=== PATIENT | male | born 1970 | race Caucasian/White ===

== ENCOUNTER → 2017-11-24 | Outpatient (CLI) | payer OTHER, BC ==
[2017-11-24 13:33] LABS: BASO # 0.1 10^3/uL (0.0-0.2); BASO % 0.8 % (0.0-1.0); EOS # 0.1 10^3/uL (0.0-0.50); EOS % 1.3 % (0.0-3.0); HEMATOCRIT 43.8 % (42.0-52.0); HEMOGLOBIN 14.8 g/dl (14.0-18.0); IMMATURE GRANULOCYTE % 0.3 % (0-3.0); MEAN CORPUSCULAR HEMOGLOBIN 32.4 pg (27.0-33.0); MEAN CORPUSCULAR HGB CONC 33.8 g/dl (32.0-36.5); MEAN CORPUSCULAR VOLUME 95.8 fl (80.0-96.0); MONO # 0.6 10^3/uL (0.0-0.8); MONO % 9.6 % (0.0-5.0); NEUTROPHILS # 2.4 10^3/uL (1.8-7.7); PLATELET COUNT, AUTOMATED 312 10^3/uL (150-450); RED BLOOD COUNT 4.57 10^6/uL (4.30-6.10)
[2017-11-24 14:00] LABS: ALBUMIN 3.6 GM/DL (3.2-5.2); ALBUMIN/GLOBULIN RATIO 1.09 (1.00-1.93); ALKALINE PHOSPHATASE 72 U/L (45-117); ALT/SGPT 30 U/L (12-78); ANION GAP 6 MEQ/L (8-16); AST/SGOT 15 U/L (7-37); BILIRUBIN,TOTAL 0.3 MG/DL (0.2-1.0); BLOOD UREA NITROGEN 18 MG/DL (7-18); CALCIUM LEVEL 8.9 MG/DL (8.5-10.1); CARBON DIOXIDE LEVEL 28 MEQ/L (21-32); CHLORIDE LEVEL 107 MEQ/L (98-107); CHOLESTEROL LEVEL 229 MG/DL (<200); CHOLESTEROL RISK RATIO 5.585 (<5); CREATININE FOR GFR 1.05 MG/DL (0.70-1.30); FREE T4 0.82 NG/DL (0.76-1.46); GLOMERULAR FILTRATION RATE > 60.0 (>60); GLUCOSE, FASTING 85 MG/DL (70-100); HDL CHOLESTEROL 41 MG/DL (>40); LDL CHOLESTEROL 150.6 MG/DL (<100); NON-HDL-C 188 MG/DL; POTASSIUM SERUM 4.7 MEQ/L (3.5-5.1); SODIUM LEVEL 141 MEQ/L (136-145); TOTAL PROTEIN 6.9 GM/DL (6.4-8.2); TRIGLYCERIDES LEVEL 187 MG/DL (<150)
== END ==
LOC: M ADAMS 08:06
DX: Z00.00 Encounter for general adult medical examination without abnormal findings (principal); F32.9 Major depressive disorder, single episode, unspecified; M79.601 Pain in right arm
CPT/HCPCS: 84443

== ENCOUNTER 2017-12-08 12:45 | Outpatient (RCR) | payer OTHER, BC | END 2017-12-26 | LOC: M PT 12:45 | DX: Z51.89 Encounter for other specified aftercare (principal); M79.602 Pain in left arm ==

== ENCOUNTER 2017-12-31 12:40 | Outpatient (RCR) | payer OTHER | END 2018-01-25 | LOC: M PT 01-06 10:10 | DX: Z51.89 Encounter for other specified aftercare (principal); M79.602 Pain in left arm | CPT/HCPCS: 97010 ==

== ENCOUNTER → 2018-02-26 | Outpatient (CLI) | payer OTHER | LOC: M RAD 18:00 | DX: M75.41 Impingement syndrome of right shoulder (principal) | CPT/HCPCS: 73221 ==

== ENCOUNTER 2018-07-30 11:18 | Emergency (ER) | payer OTHER, MEDICAID ==
[2018-07-30 12:06] LABS: BASO % 0.6 % (0.0-1.0); EOS # 0.1 10^3/uL (0.0-0.50); EOS % 1.1 % (0.0-3.0); HEMATOCRIT 44.8 % (42.0-52.0); HEMOGLOBIN 15.6 g/dl (13.5-17.5); IMMATURE GRANULOCYTE % 0.3 % (0-3.0); LYMPH # 2.8 10^3/uL (1.5-4.5); LYMPH % 41.9 % (24.0-44.0); MEAN CORPUSCULAR HEMOGLOBIN 32.4 pg (27.0-33.0); MEAN CORPUSCULAR HGB CONC 34.8 g/dl (32.0-36.5); MEAN CORPUSCULAR VOLUME 92.9 fl (80.0-96.0); MONO # 0.5 10^3/uL (0.0-0.8); MONO % 8.1 % (0.0-5.0); NEUTROPHILS # 3.2 10^3/uL (1.8-7.7); PLATELET COUNT, AUTOMATED 313 10^3/uL (150-450); RED BLOOD COUNT 4.82 10^6/uL (4.30-6.10); RED CELL DISTRIBUTION WIDTH 13.5 % (11.5-14.5); WHITE BLOOD COUNT 6.6 10^3/uL (4.0-10.0)
[2018-07-30 12:18] LABS: INR 0.91; PARTIAL THROMBOPLASTIN TIME 26.6 SECONDS (25.4-37.6); PROTHROMBIN TIME 12.3 SECONDS (12.1-14.4)
[2018-07-30 12:53] LABS: ANION GAP 6 MEQ/L (8-16); BLOOD UREA NITROGEN 13 MG/DL (7-18); CALCIUM LEVEL 9.6 MG/DL (8.5-10.1); CARBON DIOXIDE LEVEL 27 MEQ/L (21-32); CHLORIDE LEVEL 107 MEQ/L (98-107); CK-MB VALUE MASS < 1.0 NG/ML (<3.6); CPK CREATINE PHOSPHOKINASE 104 U/L (39-308); CREATININE FOR GFR 0.97 MG/DL (0.70-1.30); GLOMERULAR FILTRATION RATE > 60.0 (>60); GLUCOSE, FASTING 92 MG/DL (70-100); MB/CK RELATIVE INDEX 0.96 (< OR =4); SODIUM LEVEL 140 MEQ/L (136-145); TROPONIN I < 0.02 NG/ML (< 0.10)
[2018-07-30] MEDS: NS 1,000 ML IV (14:09)
[2018-07-30] MEDS: METOCLOPRAMIDE INJ 10MG/2ML VIAL (J2765) IV (14:09)
[2018-07-30] MEDS: KETOROLAC 30 MG/ML VIAL (J1885) IV (14:10)
[2018-08-03 14:07] LABS: BEDSIDE GLUCOSE 86 MG/DL (70-105)
== END 2018-07-30 15:58 | disposition home or self-care (01) ==
LOC: M ED 11:18
DX: R51 Headache (principal); R00.1 Bradycardia, unspecified; K57.90 Diverticulosis of intestine, part unspecified, without perforation or abscess without bleeding; F32.9 Major depressive disorder, single episode, unspecified; F41.9 Anxiety disorder, unspecified; F31.9 Bipolar disorder, unspecified; M54.5 Low back pain
CPT/HCPCS: J1885

== ENCOUNTER 2018-09-01 10:15 | Day surgery (SDC) | payer OTHER ==
[2018-09-01] MEDS ORDERED: LR 1,000 ML IV ×3 (10:45→15:30)
[2018-09-01] MEDS ORDERED: METOCLOPRAMIDE INJ 10MG/2ML VIAL (J2765) As Ordered (12:38)
[2018-09-01] MEDS ORDERED: PROPOFOL 200 MG/20 ML VIAL As Ordered (12:38)
[2018-09-01] MEDS ORDERED: MIDAZOLAM INJ 2 MG/2 ML VIAL (J2250) As Ordered (12:38)
[2018-09-01] MEDS ORDERED: LIDOCAINE 2% INJ 100 MG/5 ML SDV (FOR ANES.) As Ordered (12:38)
[2018-09-01] MEDS ORDERED: ONDANSETRON 4MG/2ML VIAL (J2405) As Ordered (12:38)
[2018-09-01] MEDS ORDERED: dexameTHASONE 4 MG/ML 1ML VIAL (J1100) As Ordered (12:38)
[2018-09-01] MEDS ORDERED: fentaNYL 100 MCG/2 ML INJECTION (J3010) As Ordered ×4 (12:57→15:24)
[2018-09-01] MEDS ORDERED: KETOROLAC 60 MG/2 ML VIAL (J1885) As Ordered (13:00)
[2018-09-01] MEDS ORDERED: SEVOFLURANE INHAL SOLN 250 ML BTL As Ordered (13:14)
[2018-09-01] MEDS ORDERED: DESFLURANE 240 ML INHALANT As Ordered (14:34)
[2018-09-01] MEDS: BUPIVACAINE HCL 0.5% 30 ML VIAL As Ordered (14:57)
[2018-09-01] MEDS ORDERED: PERCOCET 5MG/325MG TAB As Ordered ×2 (15:24→16:37)
[2018-09-01] MEDS: fentaNYL 100 MCG/2 ML INJECTION (J3010) IV ×4 (15:29→15:43)
[2018-09-01] MEDS ORDERED: MEPERIDINE INJ 25 MG/ML VIAL (J2175) IV (15:30)
[2018-09-01] MEDS: ONDANSETRON 4MG/2ML VIAL (J2405) IV (15:33)
[2018-09-01] MEDS ORDERED: LABETALOL HCL 100 MG/20 ML VIAL As Ordered (15:34)
[2018-09-01] MEDS: LABETALOL HCL 100 MG/20 ML VIAL IV ×2 (15:38→15:43)
[2018-09-01] MEDS: METOCLOPRAMIDE INJ 10MG/2ML VIAL (J2765) IV (15:45)
[2018-09-01] MEDS: PERCOCET 5MG/325MG TAB PO (16:39)
[2018-09-01] MEDS: NALBUPHINE HCL 10 MG/ML AMP (J2300) IV ×2 (16:40→17:15)
[2018-09-01] MEDS ORDERED: MORPHINE 10 MG/ML 1ML VIAL (J2270) As Ordered (16:59)
[2018-09-01] MEDS: MORPHINE 10 MG/ML 1ML VIAL (J2270) IV (17:00)
== END 2018-09-01 19:25 | disposition home or self-care (01) ==
LOC: M SDC 10:15
DX: S46.212A Strain of muscle, fascia and tendon of other parts of biceps, left arm, initial encounter (principal); K57.32 Diverticulitis of large intestine without perforation or abscess without bleeding; F41.9 Anxiety disorder, unspecified; K04.7 Periapical abscess without sinus; Z87.891 Personal history of nicotine dependence; X58.XXXA Exposure to other specified factors, initial encounter; Y93.89 Activity, other specified; Y92.89 Other specified places as the place of occurrence of the external cause; Y99.8 Other external cause status
CPT/HCPCS: 24341

== ENCOUNTER 2018-09-24 08:45 | Outpatient (RCR) | payer OTHER ==
[~2018-09-24 08:45] MED LIST: AMOX875T PO; IBUP80TA PO
== END 2018-09-27 ==
LOC: M PT 08:45
PROVIDERS: ATTEND Physician Assistant Medical
DX: Z47.89 Encounter for other orthopedic aftercare (principal); S46.212D Strain of muscle, fascia and tendon of other parts of biceps, left arm, subsequent encounter

== ENCOUNTER → 2018-10-06 | Outpatient (CLI) | payer OTHER ==
[~2018-10-06] MED LIST changes: +PROHANCE 279.3MG/ML 15ML VIAL (A9576) As Ordered ONE; +PROHANCE 279.3MG/ML 5ML VIAL (A9576) As Ordered ONE
--- NOTE | 2018-10-06 16:40 | REP ---
MR IACS WITHOUT AND WITH CONTRAST: HISTORY: Left hearing loss. CONTRAST: ProHance 18 mL Areas of increased signal intensity on T2-weighted images are present in the periventricular and subcortical white matter. These are largely subcortical in location. This represents small-vessel ischemic disease. There is no intraparenchymal hemorrhage, infarct, mass or midline shift. There is no abnormal enhancement. The ventricular system is normal in appearance. There is no extracerebral collection. There is no cerebellopontine angle mass. The inner ear structures are normal in appearance. The mastoid air cells are clear. A retention cyst is present in the right maxillary sinus. IMPRESSION: Small vessel ischemic disease. Electronically Signed by Martin Sandoval MD 10/06/2018 04:48 P
== END ==
LOC: M RAD 13:31
PROVIDERS: ATTEND Otolaryngology
DX: H90.42 Sensorineural hearing loss, unilateral, left ear, with unrestricted hearing on the contralateral side (principal)
CPT/HCPCS: 70553; A9576

== ENCOUNTER 2018-10-25 15:15 | Outpatient (RCR) | payer OTHER ==
[~2018-10-25 15:15] MED LIST changes: -PROHANCE 279.3MG/ML 15ML VIAL (A9576) As Ordered ONE; -PROHANCE 279.3MG/ML 5ML VIAL (A9576) As Ordered ONE
== END 2018-10-28 ==
LOC: M PT 15:15
PROVIDERS: ATTEND Physician Assistant Medical
DX: Z47.89 Encounter for other orthopedic aftercare (principal); S46.212D Strain of muscle, fascia and tendon of other parts of biceps, left arm, subsequent encounter; W18.30XD Fall on same level, unspecified, subsequent encounter; Y92.009 Unspecified place in unspecified non-institutional (private) residence as the place of occurrence of the external cause

== ENCOUNTER 2018-11-04 15:00 | Outpatient (RCR) | payer OTHER | END 2018-11-25 | LOC: M PT 15:00 | PROVIDERS: ATTEND Physician Assistant Medical | DX: Z47.89 Encounter for other orthopedic aftercare (principal); S46.212D Strain of muscle, fascia and tendon of other parts of biceps, left arm, subsequent encounter; W18.30XD Fall on same level, unspecified, subsequent encounter; Y92.009 Unspecified place in unspecified non-institutional (private) residence as the place of occurrence of the external cause ==

== ENCOUNTER 2018-12-22 14:32 | Outpatient (RCR) | payer OTHER | END 2018-12-26 | LOC: M PT 14:32 | PROVIDERS: ATTEND Physician Assistant Medical | DX: Z47.89 Encounter for other orthopedic aftercare (principal); S46.212D Strain of muscle, fascia and tendon of other parts of biceps, left arm, subsequent encounter; W18.30XD Fall on same level, unspecified, subsequent encounter; Y92.009 Unspecified place in unspecified non-institutional (private) residence as the place of occurrence of the external cause ==

== ENCOUNTER 2019-01-03 15:46 | Outpatient (RCR) | payer OTHER | END 2019-01-25 | LOC: M PT 15:46 | PROVIDERS: ATTEND Physician Assistant Medical | DX: Z47.89 Encounter for other orthopedic aftercare (principal); S46.212D Strain of muscle, fascia and tendon of other parts of biceps, left arm, subsequent encounter; W18.30XD Fall on same level, unspecified, subsequent encounter; Y92.009 Unspecified place in unspecified non-institutional (private) residence as the place of occurrence of the external cause ==

== ENCOUNTER → 2021-06-25 | Outpatient (REF) | payer OTHER ==
[2021-06-25 12:48] LABS: BASO # 0.1 10^3/uL (0.0-0.2); EOS % 0.8 % (0.0-3.0); HEMATOCRIT 47.3 % (42.0-52.0); HEMOGLOBIN 15.6 g/dl (13.5-17.5); LYMPH # 1.8 10^3/uL (1.5-5.0); LYMPH % 35.7 % (24.0-44.0); MEAN CORPUSCULAR HEMOGLOBIN 31.9 pg (27.0-33.0); MEAN CORPUSCULAR VOLUME 96.7 fl (80.0-96.0); MONO # 0.5 10^3/uL (0.0-0.8); MONO % 10.3 % (2.0-8.0); NEUTROPHILS # 2.6 10^3/uL (1.5-8.5); NEUTROPHILS % 51.8 % (36.0-66.0); PLATELET COUNT, AUTOMATED 318 10^3/uL (150-450); RED BLOOD COUNT 4.89 10^6/uL (4.30-6.10)
[2021-06-25 13:15] LABS: ALBUMIN 3.6 GM/DL (3.2-5.2); ALT/SGPT 36 U/L (12-78); BILIRUBIN,TOTAL 0.4 MG/DL (0.2-1.0); BLOOD UREA NITROGEN 12 MG/DL (7-18); CALCIUM LEVEL 9.6 MG/DL (8.5-10.1); CARBON DIOXIDE LEVEL 29 MEQ/L (21-32); CHLORIDE LEVEL 110 MEQ/L (98-107); CHOLESTEROL LEVEL 228 MG/DL (<200); GLOMERULAR FILTRATION RATE > 60.0 (>60); GLUCOSE, FASTING 87 MG/DL (70-100); HDL CHOLESTEROL 40 MG/DL (>40); LDL CHOLESTEROL 160 MG/DL (<100); NON-HDL-C 188 MG/DL; POTASSIUM SERUM 5.3 MEQ/L (3.5-5.1); SODIUM LEVEL 142 MEQ/L (136-145); TOTAL PROTEIN 6.8 GM/DL (6.4-8.2); TRIGLYCERIDES LEVEL 142 MG/DL (<150)
== END ==
LOC: M SFHCADAM 08:15
PROVIDERS: ATTEND Family Medicine
DX: Z00.00 Encounter for general adult medical examination without abnormal findings (principal)

== ENCOUNTER → 2021-08-20 | Outpatient (CLI) | payer OTHER ==
--- NOTE | 2021-08-20 10:07 | REP ---
INDICATION: RT SHOULDER PAIN COMPARISON: 11/24/2017 TECHNIQUE: Internal rotation, external rotation, and Y view. FINDINGS: There is no evidence for acute fracture or dislocation. Acromioclavicular and glenohumeral joints are essentially age-appropriate. No significant osteophytosis, periarticular calcifications or loose bodies are identified. Surrounding soft tissues are unremarkable. IMPRESSION: Age-appropriate right shoulder radiographs. <Electronically signed by Jhon Calderon > 08/20/21 1005
--- NOTE | 2021-08-20 10:09 | REP ---
INDICATION: RT SHOULDER PAIN COMPARISON: 04/26/2010 TECHNIQUE: AP, lateral, bilateral oblique, and open-mouth views. FINDINGS: Alignment and lordosis is relatively maintained. Very minimal chronic retrolisthesis at the C3-4 level is again suggested with subtle posterior osteophytes suspected. There is no evidence for acute fracture / compression injury or subluxation. No further significant degenerative changes are appreciated. Oblique views demonstrate patent neural foramen. Open mouth view demonstrates normal C1-C2 articulation and odontoid process. IMPRESSION: Essentially stable age-appropriate examination. <Electronically signed by Jhon Calderon > 08/20/21 1947
== END ==
LOC: M SOG 09:28
PROVIDERS: ATTEND Orthopaedic Surgery Sports Medicine
DX: M25.511 Pain in right shoulder (principal)

== ENCOUNTER → 2021-08-26 | Outpatient (CLI) | payer OTHER | LOC: M LABSMTC 10:57 | PROVIDERS: ATTEND Anesthesiology | DX: Z01.812 Encounter for preprocedural laboratory examination (principal); Z20.822 Contact with and (suspected) exposure to COVID-19 ==

== ENCOUNTER 2021-08-28 07:53 | Day surgery (SDC) | payer OTHER ==
[~2021-08-28] VITALS: Ht 180.3 cm; Wt 86.6 kg
[~2021-08-28 07:53] MED LIST changes: +LIDOCAINE 2% 100MG/5ML SDV (FOR ANES.) As Ordered ONE; +NS 1,000 ML IV ONE; +propofoL 200 MG/20 ML VIAL As Ordered ONE
--- OUTSIDE RECORDS SUMMARY | 2021-08-28 07:58 | CCD ---
Author Author [facility] Syst ems Organization [facility] [employer] [facility] Syst ems Address Unknown Phone Unavailable Care Team Providers Care Hydrostatic Tubing Tester Name Role Phone Armida Escoto Unavailable PROBLEMS Type Condition ICD9-CM Code [id number] Code Onset Dates Condition S tatus W/U Status Risk SNOMED Code Notes Problem Depression, unspecified depression type F32.9 Active confirmed 93575765 Problem Anxiety with depression F41.8 Active confirmed 543950351 Problem Mixed hyperlipidemia E78.2 Active confirmed 334277209 Problem Tinnitus, unspecified laterality H93.19 Active conf irmed 47870051 Problem Other chronic pain G89.29 Active confirmed 8 6600342 Problem Anxiety disorder, unspecified F41.9 Active confirm ed 327594648 Problem Generalized anxiety disorder F41.1 Active confirme d 98512540 Problem Bipolar II disorder F31.81 Active confirmed 20375111 Problem Bipolar 2 disorder, major depressive episode F31.8 1 Active confirmed 69991335 ALLERGIES No Known Allergies ENCOUNTERS from 1972 to 2021-07-04 Encounter Location Date Provider Diagnosis [address] [place] [address] 29 May, 2021 Armida Escoto Annual physical exam Z00.00 ; Colon canc er screening Z12.11 and Diarrhea, unspecified type R19.7 IMMUNIZATIONS Vaccine Route Administration Date Status COVID-19 dose #2 given elsewhere Unspecified Unknown Feb Administered COVID-19 dose #1 given elsewhere Unspecified Unknown February 10, 2021 Administered Influenza 6mo & up Fluzone Unknown Aug 16, 2018 Other s SOCIAL HISTORY Tobacco Use: Social History Observation Description Date Details (start date - stop date) Former Smoker Sex Assigned At : Social History Observation Description Sex Assigned At Unknown Education: Question Answer Notes Level of Education: High School Audit Question Answer Notes Total Score: 0 Interpretation: Alcohol Education Language: Question Answer Notes Languages spoken: Chinese Orthodox: Question Answer Notes Orthodox 08 Faith Sexual Hx: Question Answer Notes Had sex in the last 12 months (vaginal, oral, or anal)? Yes Have you ever had an STD? Yes with Women only Use protection? Yes Other? Yes How often? All of the time Drug and Alcohol Question Answer Notes Total Score: 0 Interpretation: No problems reported Alcohol Screening: Question Answer Notes Did you have a drink containing alcohol in the past year? No Points 0 Interpretation Negative Tobacco Use: Question Answer Notes Are you a: former smoker How long has it been since you last smoked? > 10 years REASON FOR REFERRAL from 1972 to 2021-07-04 Reason Patient is due for screening colonoscopy; also has a history of diverticulitis, and has had loose stool for weeks. Please eval and treat. Diagnosis 1 Colon cancer screening (Z12. 11) Referral Organization [facility] Luis Referring Provider First Name Armida Referring Provider Last Name Jevon Referring Provider Specialty Family Medicine Referred Provider General Irma FARRAR (RAYO latif) Referred Provider Specialty General Surgery Referral Priority Routine General Notes Jewel Danielle 06/26/2021 4:55 :59 PM > faxedJewel Danielle 06/27/2021 10:30:47 AM > ref # [id number] VITAL SIGNS Weight 190.8 lbs May, Weight-kg 86.55 kg May, Height 5'11" in May, BMI 26.61 kg/m2 May, Heart Rate 80 /min May, Respiratory Rate 18 /min May, Temperature 97.8 degrees Fahrenheit May, Oximetry 98 May, Blood pressure systolic 120 mm Hg May, Blood pressure diastolic 78 mm Hg May, MEDICATIONS Medication SIG (Take, Route, Frequency, Duration) Notes Start Da te End Date Status May Have - CBD orally twice daily No t-Taking IBU-200 200 MG 1 tablet with food or milk as needed Orally Thre e times a day Active PROCEDURES No Information RESULTS No Results REASON FOR VISIT annual MEDICAL (GENERAL) HISTORY Type Description Date Medical History alcohol abuse, in remission Medical History diverticulitis Medical History sensorineural hearing loss, more prominent L ear, appropriate MRI Medical History 10 year ASCVD risk 7.11% (12/2017) Surgical History distal bicep L arm 09/01/18 Goals Section No Information Health Concerns No Information MEDICAL EQUIPMENT No Information MENTAL STATUS No Information FUNCTIONAL STATUS No Information ASSESSMENTS Encounter Date Diagnosis Assessment Notes Treatment Notes Treatm ent Clinical Notes May, Annual physical exam (ICD-10 - Z00.00) Patient seen and examined. Past medical, surgical, family, social history reviewed. Discussed preventive medicine, including immunizations. Appropriate labwork was ordered. May, Colon cancer screening (ICD-10 - Z12.11) Referral made. May, Diarrhea, unspecified type (ICD-10 - R19.7) GI panel ordered to further evaluate. PLAN OF TREATMENT Treatment Notes Assessment Notes Clinical Notes Annual physical exam Patient seen and ex amined. Past medical, surgical, family, social history reviewed. Discussed preventive medicine, including immunizations. Appropriate labwork was ordered. Colon cancer screening Referral made. Diarrhea, unspecified type GI panel orde red to further evaluate. Future Test Test Name Order Date GASTROINTESTINAL GI PANEL (GIPANEL) [id number] Referrals Referral Date Details Patient is due for screening colonoscopy; also has a history of diverticulitis, and has had loose stool for weeks. Please eval and treat., General Surge[facility] ([facility] [place]) [facility] Next Appt Details 4 Weeks Reason:f/u Follow Up:4 Weeksf/u Insurance Providers Payer Name Payer Address Payer Phone Insured Name Patient Relati onship to Insured Coverage Start Date Coverage End Date [facility] [address] [facility] [phone] FRANK CADET self
--- OUTSIDE RECORDS SUMMARY | 2021-08-28 07:58 | CCD ---
Author Author [facility] [employer] [facility] Syst ems Organization [facility] [employer] Syst ems Address Unknown Phone Unavailable Care Team Providers Care Weighter Name Role Phone Armida Escoto Unavailable PROBLEMS Type Condition ICD9-CM Code [id number] Code Onset Dates Condition S tatus W/U Status Risk SNOMED Code Notes Problem Depression, unspecified depression type F32.9 Active confirmed 61958265 Problem Anxiety with depression F41.8 Active confirmed 068191741 Problem Mixed hyperlipidemia E78.2 Active confirmed 858435845 Problem Tinnitus, unspecified laterality H93.19 Active conf irmed 26039894 Problem Other chronic pain G89.29 Active confirmed 8 3931668 Problem Anxiety disorder, unspecified F41.9 Active confirm ed 383415402 Problem Generalized anxiety disorder F41.1 Active confirme d 14183431 Problem Bipolar II disorder F31.81 Active confirmed 01114581 Problem Bipolar 2 disorder, major depressive episode F31.8 1 Active confirmed 11801891 ALLERGIES No Known Allergies ENCOUNTERS from 1972 to 2021-06-27 Encounter Location Date Provider Diagnosis [address] [place] [address] May, Armida Jevon IMMUNIZATIONS Vaccine Route Administration Date Status COVID-19 [...] Education Language: Question Answer Notes Languages spoken: Setswana Shinto: Question Answer Notes Shinto 08 Yazdanism Sexual Hx: Question Answer Notes Had sex [...] smoked? > 10 years REASON FOR REFERRAL No Information VITAL SIGNS No information MEDICATIONS Medication SIG (Take, Route, Frequency, Duration) Notes Start Da te End Date Status May Have - CBD orally twice daily No t-Taking IBU-200 200 MG 1 tablet with food or milk as needed Orally Thre e times a day Active PROCEDURES No Information RESULTS No Results REASON FOR VISIT [facility] referral MEDICAL (GENERAL) HISTORY Type Description Date Medical History alcohol abuse, in remission Medical History diverticulitis Medical History sensorineural hearing loss, more prominent L ear, appropriate MRI Medical History 10 year ASCVD risk 7.11% (12/2017) Surgical History distal bicep L arm 09/01/18 Goals Section No Information Health Concerns No Information MEDICAL EQUIPMENT No Information MENTAL STATUS No Information FUNCTIONAL STATUS No Information ASSESSMENTS No Information PLAN OF TREATMENT No Information Insurance Providers Payer Name Payer Address Payer Phone Insured Name Patient Relati onship to Insured Coverage Start Date Coverage End Date [facility] [address] [facility] [phone] FRANK CADET self
--- OUTSIDE RECORDS SUMMARY | 2021-08-28 07:58 | CCD | Continuity of Care Document ---
Author Author Gian LUBIN MD Organization Unknown Address [address] , [facility] [address] [place] [address] Phone [phone] Care Team Providers Care Fringe Maker Name Role Phone NokomisJudith AUTM [phone] Armida Escoto D.O. AUTM AUTM Unavailable AUTM Unavailable Problems Description No Information Available Social History Type Date Description Comments Sex Unknown ETOH Use Denies alcohol use Tobacco Use Start: Unknown Denies Smoking Recreational Drug Use Current Drug User marijuan a twice a day Allergies and adverse reactions Description No Known Drug Allergies Medications Active Medications SIG Qnty Indications Ordering Provide r Date Miralax 17GM/Scoop Powder use as instructed by doctor for bowel prep 238gm Cesar chang M.D. 08/26/2021 Magnesium Citrate 1.745GM/30ML Preeti ution 10 oz bottle for bowel preparation prior to procedure ( take as per the instruction sheet). 592ml Cesar Cha M.D. 08/26/[address] take 4 tabs by mouth prior to procedure per instructions. 4tabs Casey Cha M.D. 08/26/2021 History Medications No Active Medications Unknown - 08/26/2021 Suprep Bowel Prep Kit 17.5-3.13-1.6GM/177ML Solution take per doctor's bowel prep instructions. 354ml Cesar Cha M.D. 08/13/2021 - 08/20/2021 Immunizations Description No Information Available Vital Signs Date Vital Result Comment 08/20/2021 9:01am Body Temperature 98.1 F 07/09/2021 9:43am BP Systolic 139 mmHg BP Diastolic 89 mmHg Heart Rate 56 /min Body Temperature 98.1 F Height 71 inches 5'11" Weight 195.25 lb BMI (Body Mass Index) 27.2 kg/m2 [place] Body Weight 172 lb Weight 88.565 kg BSA (Body Surface Area) 2.09 m2 Results Description No Information Available Procedures Date Code Description Status 08/20/2021 26069 Office/Outpatient New Moderate M DM 45-59 Minutes Completed 07/09/2021 86985 Office/Outpatient New Low MDM 30 -44 Minutes Completed Medical Devices Description No Information Available Encounters Type Date Location Provider Dx Diagnosis Office Visit 08/20/2021 9:00a [facility] Jose Cruz Lubin MD M25.511 Pain in right shoulder Office Visit 07/09/2021 9:30a [facility] OZZIE Martins Z12.11 Encounter for screening for malignant ne oplasm of colon Assessments Date Code Description Provider 08/20/2021 M25.511 Pain in right shoulder Jose Cruz bates MD 07/09/2021 Z12.11 Encounter for screening for khari gnant neoplasm of colon OZZIE Tam Plan of Treatment Future Appointment(s):* 09/11/2021 9:45 am - OZZIE Tam at [facility] * 08/28/2021 10:00 am - Abdiel Sanchez MD at [facility] 08/20/2021 - Jose Cruz Lubin MD* M25.511 Pain in right shoulder* New Xrays:* XR Cervical Spine 4 Or 5 Views, Ordered: 08/20/21 * XR Shoulder Complete Minimum 2 Views Right, Ordered: 08/20/21 Functional Status Description No Information Available Mental Status Description No Information Available Referrals Refer to Reason for Referral Status Appt Date Abdiel Sanchez MD COLONOSCOPY Scheduled 07/09/[address] [place] [address] [phone]
--- OUTSIDE RECORDS SUMMARY | 2021-08-28 07:58 | CCD | Continuity of Care Document ---
Author Author Gian REN PA Organization Unknown Address [address] [facility], [address] [place] [address] Phone [phone] Care Team Providers Care Head Waitress Name Role Phone [place]orton[place]Judith AUTM [phone] Armida Escoto D.O. AUTM AUTM Unavailable AUTM Unavailable Problems Description No Information Available Social History Type Date Description Comments Sex Unknown ETOH Use Denies alcohol use Tobacco Use Start: Unknown Denies Smoking Recreational Drug Use Current Drug User marijuan a twice a day Allergies and adverse reactions Description No Known Drug Allergies Medications Description No Active Medications Immunizations Description No Information Available Vital Signs Date Vital Result Comment 07/09/2021 9:43am BP Systolic 139 mmHg BP Diastolic 89 mmHg Heart Rate 56 /min Body Temperature 98.1 F Height 71 inches 5'11" Weight 195.25 lb BMI (Body Mass Index) 27.2 kg/m2 [place] Body Weight 172 lb Weight 88.565 kg BSA (Body Surface Area) 2.09 m2 09/27/2018 1:30pm Height 71 inches 5'11" Weight 200.00 lb BMI (Body Mass Index) 27.9 kg/m2 [place] Body Weight 172 lb Weight 90.720 kg BSA (Body Surface Area) 2.11 m2 Results Description No Information Available Procedures Date Code Description Status 07/09/2021 65036 Office/Outpatient New Low MDM 30 -44 Minutes Completed Medical Devices Description No Information Available Encounters Type Date Location Provider Dx Diagnosis Office Visit 07/09/2021 9:30a [facility] OZZIE Maritns Z12.11 Encounter for screening for malignant ne oplasm of colon Assessments Date Code Description Provider 07/09/2021 Z12.11 Encounter for screening for khari gnant neoplasm of colon OZZIE Tam Plan of Treatment Future Appointment(s):* 09/11/2021 9:45 am - OZZIE Tam at [facility] * 08/28/2021 10:00 am - Abdiel Sanchez MD at [facility] Practice 07/09/2021 - OZZIE Tam* Z12.11 Encounter for screening for malignant neoplasm of colon Functional Status Description No Information Available Mental Status Description No Information Available Referrals Refer to Reason for Referral Status Appt Date Abdiel Sanchez MD COLONOSCOPY Scheduled 07/09/2021 [address] [place] [address] [phone]
--- OUTSIDE RECORDS SUMMARY | 2021-08-28 07:58 | CCD ---
Author Author [facility] Syst ems Organization [facility] [employer] Syst ems Address Unknown Phone Unavailable Care Team Providers Care Mutuel Cashier Name Role Phone Manfred Escotoin Unavailable PROBLEMS Type Condition ICD9-CM Code [id number] Code Onset Dates Condition S tatus W/U Status Risk SNOMED Code Notes Problem Depression, unspecified depression type F32.9 Active confirmed 69431363 Problem Anxiety with depression F41.8 Active confirmed 100959561 Problem Mixed hyperlipidemia E78.2 Active confirmed 693625077 Problem Tinnitus, unspecified laterality H93.19 Active conf irmed 08878508 Problem Other chronic pain G89.29 Active confirmed 8 3678938 Problem Anxiety disorder, unspecified F41.9 Active confirm ed 229801495 Problem Generalized anxiety disorder F41.1 Active confirme d 24001905 Problem Bipolar II disorder F31.81 Active confirmed 58698079 Problem Bipolar 2 disorder, major depressive episode F31.8 1 Active confirmed 73321176 ALLERGIES No Known Allergies ENCOUNTERS from 1972 to 2021-06-11 Encounter Location Date Provider Diagnosis [address] [place] [address] May, Armida Tomás-Tartell IMMUNIZATIONS Vaccine Route Administration Date Status Influenza 6mo & up Fluzone Unknown Aug [...] Education Language: Question Answer Notes Languages spoken: Czech Latter-Day: Question Answer Notes Latter-Day 08 Adventism Sexual Hx: Question Answer Notes Had sex [...] needed Orally Thre e times a day Not-Taking PROCEDURES No Information RESULTS No Results REASON FOR VISIT no show 06/05/2021 MEDICAL (GENERAL) HISTORY Type Description Date Medical [...] Information ASSESSMENTS No Information PLAN OF TREATMENT Next Appt Details Provider Name:Armida Escoto, 2021-06-26 04:15:00 PM, [address], , [place], [address], Insurance Providers Payer Name Payer Address Payer Phone Insured Name Patient Relati onship to Insured Coverage Start Date Coverage End Date [facility] [address] [facility] [address] FRANK CADET self
--- OUTSIDE RECORDS SUMMARY | 2021-08-28 07:58 | CCD ---
Author Author [facility] Syst ems Organization [facility] [employer] Syst ems Address Unknown Phone Unavailable Care Team Providers Care Signal Tower Director Name Role Phone Tomás-TarteLeon changtlin Unavailable PROBLEMS Type Condition ICD9-CM Code MJT93-LD Code Onset Dates Condition S tatus W/U Status Risk SNOMED Code Notes Problem Depression, unspecified depression type F32.9 Active confirmed 09856485 Problem Anxiety with depression F41.8 Active confirmed 473491035 Problem Mixed hyperlipidemia E78.2 Active confirmed 474611303 Problem Tinnitus, unspecified laterality H93.19 Active conf irmed 10387232 Problem Other chronic pain G89.29 Active confirmed 8 7531788 Problem Anxiety disorder, unspecified F41.9 Active confirm ed 603032358 Problem Generalized anxiety disorder F41.1 Active confirme d 51200969 Problem Bipolar II disorder F31.81 Active confirmed 54311297 Problem Bipolar 2 disorder, major depressive episode F31.8 1 Active confirmed 02174048 ALLERGIES No Known Allergies ENCOUNTERS from 1972 to 2021-06-13 Encounter Location Date Provider Diagnosis [address] [place] [address] Apr, Armida Tomás-Tartell IMMUNIZATIONS Vaccine Route Administration Date [...] Education Language: Question Answer Notes Languages spoken: Spanish Alevism: Question Answer Notes Alevism 08 Yazidism Sexual Hx: Question Answer Notes Had sex [...] Information RESULTS No Results REASON FOR VISIT [facility] MEDICAL (GENERAL) HISTORY Type Description Date Medical [...] Details Provider Name:Armida Escoto, 2021-06-26 04:15:00 PM, [address], , [place], [address], Insurance Providers Payer Name Payer Address Payer Phone Insured Name Patient Relati onship to Insured Coverage Start Date Coverage End Date [facility] PLAN [facility] [address] [facility] [phone] FRANK CADET self
--- OUTSIDE RECORDS SUMMARY | 2021-08-28 07:58 | CCD ---
Author Author [facility] Organization [facility] Address Unknown Phone Unavailable Care Team Providers Care Chemical Milling Processor Name Role Phone Rocio Lopez MD Unavailable Unavailable Rocio Lopez MD Unavailable Unavailable Rocio Lopez MD Unavailable Unavailable Rocio Lopez MD Unavailable Unavailable Rocio Lopez MD Unavailable Unavailable Rocio Lopez MD Unavailable Unavailable Rocio Lopez MD Unavailable Unavailable Rocio Lopez MD Unavailable Unavailable Rocio Lopez MD Unavailable Unavailable Rocio Lopez MD Unavailable Unavailable Rocio Lopez MD Unavailable Unavailable Rocio Lopez MD Unavailable Unavailable Rocio Lopez MD Unavailable Unavailable Rocio Lopez MD Unavailable Unavailable Rocio Lopez MD Unavailable Unavailable Rocio Lopez MD Unavailable Unavailable Rocio Lopez MD Unavailable Unavailable Rocio Lopez MD Unavailable Unavailable Rocio Lopez MD Unavailable Unavailable Mollison, Rocio Billingsley MD Unavailable Unavailable Mollison, Rocio Billingsley MD Unavailable Unavailable Mollison, Rocio Billingsley MD Unavailable Unavailable Mollison, Rocio Billingsley MD Unavailable Unavailable Mollison, Rocio Billingsley MD Unavailable Unavailable Mollison, Rocio Billingsley MD Unavailable Unavailable Mollison, Rocio Billingsley MD Unavailable Unavailable Mollison, Rocio Billingsley MD Unavailable Unavailable Mollison, Rocio Billingsley MD Unavailable Unavailable Mollison, Rocio Billingsley MD Unavailable Unavailable Mollison, Rocio Billingsley MD Unavailable Unavailable Rivera, L Edda RPA Unavailable Unavailable Rivera, L Edda RPA Unavailable Unavailable Rivera, L Edda RPA Unavailable Unavailable Rivera, L Edda RPA Unavailable Unavailable Rivera, L Edda RPA Unavailable Unavailable Rivera, L Edda RPA Unavailable Unavailable Rivera, L Edda RPA Unavailable Unavailable Rivera, L Edda RPA Unavailable Unavailable Rivera, L Edda RPA Unavailable Unavailable Rivera, L Edda RPA Unavailable Unavailable Rivera, L Edda RPA Unavailable Unavailable Rivera, L Edda RPA Unavailable Unavailable Rivera, L Edda RPA Unavailable Unavailable Rivera, L Edda RPA Unavailable Unavailable Rivera, L Edda RPA Unavailable Unavailable Rivera, L Edda RPA Unavailable Unavailable Rivera, L Edda RPA Unavailable Unavailable Rivera, L Edda RPA Unavailable Unavailable Rivera, L Edda RPA Unavailable Unavailable Rivera, L Edda RPA Unavailable Unavailable Rivera, L Edda RPA Unavailable Unavailable Rivera, L Edda RPA Unavailable Unavailable Rivera, L Edda RPA Unavailable Unavailable Rivera, L Edda RPA Unavailable Unavailable Rivera, L Edda RPA Unavailable Unavailable Rivera, L Edda RPA Unavailable Unavailable Rivera, L Edda RPA Unavailable Unavailable Rivera, L Edda RPA Unavailable Unavailable Rivera, L Edda RPA Unavailable Unavailable Rivera, L Edda RPA Unavailable Unavailable Rivera, L Edda RPA Unavailable Unavailable Rivera, L Edda RPA Unavailable Unavailable Re-disclosure Warning The records that you are about to access may contain information from federally-assisted alcohol or drug abuse programs. If such information is present, then the following federally mandated warning applies: This information has been disclosed to you from records protected by federal confidentiality rules (42 CFR part 2). The federal rules prohibit you from making any further disclosure of this information unless further disclosure is expressly permitted by the written consent of the person to whom it pertains or as otherwise permitted by 42 CFR part 2. A general authorization for the release of medical or other information is NOT sufficient for this purpose. The Federal rules restrict any use of the information to criminally investigate or prosecute any alcohol or drug abuse patient.The records that you are about to access may contain highly sensitive health information, the redisclosure of which is protected by Article 27-F of the [facility] Public Health law. If you continue you may have access to information: Regarding HIV / AIDS; Provided by facilities licensed or operated by the [facility] Office of Mental Health; or Provided by the [facility] Office for People With Developmental Disabilities. If such information is present, then the following [facility] mandated warning applies: This information has been disclosed to you from confidential records which are protected by state law. State law prohibits you from making any further disclosure of this information without the specific written consent of the person to whom it pertains, or as otherwise permitted by law. Any unauthorized further disclosure in violation of state law may result in a fine or fci sentence or both. A general authorization for the release of medical or other information is NOT sufficient authorization for further disc losure. Family History Family Member Name Family Member Gender Family Member Status Date o f Status Description Data Source(s) Unknown Unknown Problem MEDENT ([facility]) Unknown Male Problem MEDENT ([facility]) Unknown Male Problem MEDENT ([facility]) Encounters Encounter Providers Location Date Indications Data Source(s ) Outpatient Attender: Jose Cruz [place] 08/20/2021 08:00:00 AM EST MEDENT ([facility], ) Outpatient Attender: Edda M[place] 07/09/2021 09:30:00 AM EDT MED[facility] ([facility], ) [place] [address] [facility] [address] [place] [address] 06/27/2021 12:00:00 AM EDT eCW1 ([facility]) Outpatient [address] [facility] [address] [address] 06/26/2021 12:00:00 AM EDT eCW1 ([facility]) Unknown [address] [facility] [address] [address] 06/05/2021 12:00:00 AM EDT eCW1 ([facility]) Unknown [address] [facility] [address] [place] [address] 05/14/2021 12:00:00 AM EDT eCW1 ([facility]) [place] [address] [facility] [place] [address] 05/06/2021 12:00:00 AM EDT eCW1 ([facility]) Unknown [address] [facility] [place] [address] 05/06/2021 12:00:00 AM EDT eCW1 ([facility]) Immunizations Vaccine Date Status Description Data Source(s) COVID-19 dose #2 given elsewhere Unspecified 03/10/2021 04:5 2:00 PM EDT completed eCW1 ([facility]) COVID-19 dose #2 given elsewhere Unspecified 03/10/2021 04:5 2:00 PM EDT completed eCW1 ([facility]) COVID-19 VACCINE Moderna 03/10/2021 12:00:00 AM EDT completed [place] Vaccine Series Complete: YESThis Data wa s Submitted to [facility] Via [employer]. COVID-19 dose #1 given elsewhere Unspecified 02/10/2021 04:5 1:00 PM EDT completed eCW1 ([facility]) COVID-19 dose #1 given elsewhere Unspecified 02/10/2021 04:5 1:00 PM EDT completed eCW1 ([facility]) COVID-19 VACCINE Moderna 02/10/2021 12:00:00 AM EDT completed [place] Vaccine Series Complete: NOThis Data was Submitted to [facility] Via [employer]. Medications Medication Brand Name Start Date Product Form Dose Route Admi nistrative Instructions Pharmacy Instructions Status Indications Reaction Description Data Source(s) Bisacodyl 5 MG Delayed Release Oral Tablet [Dulcolax] Dulcol ax 08/26/2021 12:00:00 AM EST ORAL active M EDENT ([facility] ) POLYETHYLENE GLYCOL 3350 142 MG/ML Oral Solution [Miralax] M iralax 08/26/2021 12:00:00 AM EST active M EDENT ([facility]) magnesium citrate 58.2 MG/ML Oral Solution Magnesium Citrate 08/26/2021 12:00:00 AM EST active MEDENT ([facility]) No Active Medications 08/20/2021 12:00:00 AM EST completed MEDENT ([facility]) Suprep Bowel Prep Kit Suprep Bowel Prep Kit 08/13/2021 12:00:00 AM EST completed MEDENT ([facility]) Insurance Providers Payer name Policy type / Coverage type Policy ID Covered constitution party ID Covered constitution party's relationship to oseguera Policy [place] Plan Information Medicaid Dental S [id number] UNHC COMMUNITY PLAN MCDHMO [id number] SP [id number] HC COMMUNITY PLAN MCDHMO [id number] SP [id number] [facility] Plan Commercial [id number] Self [id number] UNHC COMMUNITY PLAN MCDHMO [id number] SP [id number] [facility] COMMUNITY PLAN MCDHMO [id number] SP [id number] [place] Medigap Part B [id number] Self [id number] [facility] Health Maintenance Organization (HMO) [id number] Self [id number] [facility] O [id number] S [id number] [facility] Health Maintenance Organization (HMO) [id number] Self [id number] ANSI-Medicaid [id number] ANSI-Medicaid [id number] Medicaid [place] [id number] Self [id number] ANSI-Medicaid [id number] [facility] [id number] SP [id number] ANSI-Medicaid [id number] ANSI-Medicaid [id number] [facility] Health Maintenance Organization (HMO) [id number] Self [id number] ANSI-Medicaid [id number] ANSI-Medicaid [id number] ANSI-Medicaid [id number] ANSI-Medicaid [id number] ANSI-Medicaid [id number] [facility] Commercial [id number] Self [id number] [employer] Community Plan Commercial [id number] Self [id number] O BLUE [id number] SP [id number] [facility] Health Maintenance Organization (HMO) [id number] Self Medicaid Dental S [id number] S [id number] MEDICAID [id number] SP [id number] MEDICAID-PHYSICIAN [id number] 18 D [id number] BLUE CROSS BLUE SHIELD-CLINIC [id number] 18 [id number] MEDICAID - CLINIC [id number] DJ [id number] UNHC COMMUNITY PLAN MCDHMO [id number] SP [id number] UNHC COMMUNITY PLAN MCDHMO [id number] SP [id number] D Managed Care [facility] P [id number] S [id number] [place] Part [place] [id number] Self [id number] [place] [id number] Self [id number] [place] [id number] Self [id number] Problems, Conditions, and Diagnoses Code Display Name Description Problem Type Effective Dates Data Source(s) G89.29 [id number] Other chronic pain Problem 05/06/2021 12:00: 00 AM EDT eCW1 ([facility]) Surgeries/Procedures Procedure Description Date Indications Data Source(s) OFFICE OUTPATIENT NEW 45 MINUTES 08/20/2021 12:00:00 A M EST GHASSAN ([facility], ) OFFICE OUTPATIENT NEW 30 MINUTES 07/09/2021 12:00:00 A M EDMauricio FERRELL ([facility], ) Results No Information Social History Code Duration Value Status Description Data Source(s ) Smoking 06/26/2021 12:00:00 AM EDT Former Smoker completed Former Smoker eCW1 ([facility]) Smoking 06/26/2021 12:00:00 AM EDT Former Smoker completed Former Smoker eCW1 ([facility]) Smoking 05/06/2021 12:00:00 AM EDT Former Smoker completed Former Smoker eCW1 ([facility]) Smoking 05/06/2021 12:00:00 AM EDT Former Smoker completed Former Smoker eCW1 ([facility]) Smoking 05/06/2021 12:00:00 AM EDT Former Smoker completed Former Smoker eCW1 ([facility]) Smoking 05/06/2021 12:00:00 AM EDT Former Smoker completed Former Smoker eCW1 ([facility]) Vital Signs ID Date Data Source UNK Name Value Range Interpretation Code Description Data Source(s) Body temperature 98.1 [degF] 98.1 [degF] [facility] ([facility]) Diastolic blood pressure 89 mm[Hg] 89 mm[Hg] [facility] ([facility]) Heart rate 56 /min 56 /min [facility] ([facility]) Body temperature 98.1 [degF] 98.1 [degF] [facility] ([facility]) Body weight 195.25 [lb_av] 195.25 [lb_av] [facility] Body mass index (BMI) [Ratio] 27.2 kg/m2 27.2 k g/m2 [facility] ([facility]) Body weight 88.565 kg 88.565 kg [facility] ([facility]) Body surface area Derived from formula 2.09 m2 2.09 m2 [facility] ([facility]) Body height 71 [in_i] 71 [in_i] [facility] ([facility]) 5'11" [place] body weight 172 [lb_av] 172 [lb_av] [facility] ([facility]) Systolic blood pressure 139 mm[Hg] 139 mm[Hg] M [facility] ([facility]) Body temperature 97.8 [degF] 97.8 [degF] eCW1 ( [facility]) Systolic blood pressure 120 mm[Hg] 120 mm[Hg] e CW1 ([facility]) Diastolic blood pressure 78 mm[Hg] 78 mm[Hg] eCW1 ([facility]) Body weight 190.8 [lb_av] 190.8 [lb_av] eCW1 ([facility]) Body weight 86.55 kg 86.55 kg eCW1 ([facility]) Body height [in_i] eCW1 ([facility]) Body mass index (BMI) [Ratio] 26.61 kg/m2 26.61 kg/m2 eCW1 ([facility]) Heart rate 80 /min 80 /min eCW1 ([facility]) Respiratory rate 18 /min 18 /min eCW1 ([facility]) Body weight 196.2 [lb_av] 196.2 [lb_av] eCW1 ([facility]) Body height [in_i] eCW1 ([facility]) Body mass index (BMI) [Ratio] 27.36 kg/m2 27.36 kg/m2 eCW1 ([facility]) Heart rate 77 /min 77 /min eCW1 ([facility]) Respiratory rate 18 /min 18 /min eCW1 ([facility]) Body temperature 98 [degF] 98 [degF] eCW1 ([facility]) Systolic blood pressure 120 mm[Hg] 120 mm[Hg] e CW1 ([facility]) Diastolic blood pressure 70 mm[Hg] 70 mm[Hg] eCW1 ([facility])
--- OUTSIDE RECORDS SUMMARY | 2021-08-28 07:58 | CCD | Continuity of Care Document ---
Author Author Gian REN PA Organization Unknown Address [address] [place] [address] [address] [place] [address] Phone [phone] Care Team Providers Care Visiting Nurse Name Role Phone LavelleJudith AUTM [phone] Armida Escoto D.O. AUTM AUTM Unavailable AUTM [...] lb BMI (Body Mass Index) 27.2 kg/m2 [place] Body Weight 172 lb Weight 88.565 kg BSA (Body Surface Area) 2.09 m2 09/27/2018 1:30pm Height 71 inches 5'11" Weight 200.00 lb BMI (Body Mass Index) 27.9 kg/m2 [place] Body Weight 172 lb Weight 90.720 kg BSA (Body Surface Area) 2.11 m2 Results Description No Information Available Procedures Description No Information Available Medical Devices Description No Information Available Encounters Description No Information Available Assessments Description No Information Available Plan of Treatment No Information Available Functional Status Description No Information Available Mental Status Description No Information Available Referrals Refer to Reason for Referral Status Appt Date Abdiel Sanchez MD COLONOSCOPY Scheduled 07/09/[address] [place] [id number] [phone]
--- OUTSIDE RECORDS SUMMARY | 2021-08-28 07:58 | CCD | Continuity of Care Document ---
Author Author Gian LUBIN MD Organization Unknown Address [address] , [facility] [address] [place] [address] Phone [phone] Care Team Providers Care Mems Engineer Name Role Phone Judith Rendon AUTM [phone] Armida Escoto D.O. AUTM [phone] AUTM Unavailable AUTM Unavailable Problems Description No Information Available Social History Type Date Description Comments Sex Unknown ETOH Use Denies alcohol use Tobacco Use Start: Unknown Denies Smoking Recreational Drug Use Current Drug User marijuan a twice a day Allergies and adverse reactions Description No Known Drug Allergies Medications Active Medications SIG Qnty Indications Ordering Provide r Date No Active Medications Unknown History Medications Suprep Bowel Prep Kit 17.5-3.13-1.6GM/177ML Solution take [...] lb BMI (Body Mass Index) 27.2 kg/m2 [place] Body Weight 172 lb Weight 88.565 kg BSA (Body Surface Area) 2.09 m2 Results Description No Information Available Procedures Date Code Description Status 08/20/2021 77058 Office/Outpatient New Moderate M DM 45-59 Minutes Completed 07/09/2021 98201 Office/Outpatient New Low MDM 30 -44 Minutes Completed Medical Devices Description No Information Available Encounters Type Date Location Provider Dx Diagnosis Office Visit 08/20/2021 9:00a [facility] Jose Cruz Lubin MD M25.511 Pain in right shoulder Office Visit 07/09/2021 9:30a [facility] OZZIE Martins Z12.11 Encounter for screening for malignant ne oplasm of colon Assessments Date Code Description Provider 08/20/2021 M25.511 Pain in right shoulder Jose Cruz bates MD 07/09/2021 Z12.11 Encounter for screening for khari gnant neoplasm of colon OZZIE Tam Plan of Treatment Future Appointment(s):* 09/11/2021 9:45 am - OZZIE Tam at [facility] * 08/28/2021 10:00 am - Abdiel Sanchez MD at [facility] 08/20/2021 - Jose Cruz Lubin MD* M25.511 Pain in right shoulder* New Xrays:* XR Cervical Spine 4 Or 5 Views, Ordered: 08/20/21 * XR Shoulder Complete Minimum 2 Views Right, Ordered: 08/20/21 Functional Status Description No Information Available Mental Status Description No Information Available Referrals Refer to Reason for Referral Status Appt Date Abdiel Sanchez MD COLONOSCOPY Scheduled 07/09/2021 6 [facility] [address] [place] [address] [phone]
--- NOTE | 2021-08-28 09:52 | ROOR ---
Patient Name: Gian Jung Procedure Date: 08/28/2021 9:16 AM Date of : 1970 Age: 51 Room: [facility] Gender: Male Note Status: Finalized Procedure: Colonoscopy Indications: Screening for colorectal malignant neoplasm Providers: Abdiel Sanchez MD Referring MD: Armida Escoto DO Requesting Provider: Medicines: Monitored Anesthesia Care Complications: No immediate complications. Procedure: Pre-Anesthesia Assessment: - Prior to the procedure, a History and Physical was performed, and patient medications and allergies were reviewed. The patient is competent. The risks and benefits of the procedure and the sedation options and risks were discussed with the patient. All questions were answered and informed consent was obtained. Patient identification and proposed procedure were verified by the physician, the nurse and the anesthesiologist in the endoscopy suite. Mental Status Examination: alert and oriented. Airway Examination: normal oropharyngeal airway and neck mobility. Respiratory Examination: clear to auscultation. CV Examination: normal. Prophylactic Antibiotics: The patient does not require prophylactic antibiotics. Prior Anticoagulants: The patient has taken no previous anticoagulant or antiplatelet agents. ASA Grade Assessment: II - A patient with mild systemic disease. After reviewing the risks and benefits, the patient was deemed in satisfactory condition to undergo the procedure. The anesthesia plan was to use monitored anesthesia care (MAC). Immediately prior to administration of medications, the patient was re-assessed for adequacy to receive sedatives. The heart rate, respiratory rate, oxygen saturations, blood pressure, adequacy of pulmonary ventilation, and response to care were monitored throughout the procedure. The physical status of the patient was re-assessed after the procedure. The Colonoscope was introduced through the anus and advanced to the terminal ileum, with identification of the appendiceal orifice and IC valve. The colonoscopy was performed without difficulty. The patient tolerated the procedure well. The quality of the bowel preparation was adequate to identify polyps. Findings: The perianal and digital rectal examinations were normal. A diminutive polyp was found in the transverse colon. The polyp was flat. The polyp was removed with a jumbo cold forceps. Resection and retrieval were complete. Estimated blood loss was minimal. Two sessile polyps were found in the sigmoid colon. The polyps were 3 to 6 mm in size. These polyps were removed with a cold snare. Resection and retrieval were complete. Estimated blood loss was minimal. The retroflexed view of the distal rectum and anal verge was normal and showed no anal or rectal abnormalities. A few small-mouthed diverticula were found in the sigmoid colon. Impression: - One diminutive polyp in the transverse colon, removed with a jumbo cold forceps. Resected and retrieved. - Two 3 to 6 mm polyps in the sigmoid colon, removed with a cold snare. Resected and retrieved. - The distal rectum and anal verge are normal on retroflexion view. - Diverticulosis in the sigmoid colon. Recommendation: - Discharge patient to home (ambulatory). - High fiber diet indefinitely. Procedure Code(s): --- Professional --- 80234, Colonoscopy, flexible; with removal of tumor(s), polyp(s), or other lesion(s) by snare technique 66609, 59, Colonoscopy, flexible; with biopsy, single or multiple Diagnosis Code(s): --- Professional --- K63.5, Polyp of colon Z12.11, Encounter for screening for malignant neoplasm of colon K57.30, Diverticulosis of large intestine without perforation or abscess without bleeding CPT copyright 2019 [employer]. All rights reserved. The codes documented in this report are preliminary and upon superintendent warehouse review may be revised to meet current compliance requirements. Abdiel Sanchez MD Abdiel Sanchez MD 08/28/2021 9:52:31 AM Electronically signed by Abdiel Sanchez MD Number of Addenda: 0 Note Initiated On: 08/28/2021 9:16 AM Estimated Blood Loss: Estimated blood loss was minimal.
[2021-08-28 10:08] VITALS: BP 144/99
== END 2021-08-28 10:28 | disposition home or self-care (01) ==
LOC: M OPP 07:53
PROVIDERS: ATTEND Surgery
DX: Z12.11 Encounter for screening for malignant neoplasm of colon (principal); Z86.010 Personal history of colon polyps; K63.5 Polyp of colon; K57.30 Diverticulosis of large intestine without perforation or abscess without bleeding; Z80.42 Family history of malignant neoplasm of prostate